=== PATIENT | male | born 1985 | race Caucasian/White ===

== ENCOUNTER 2021-08-03 15:57 | Inpatient (IN) | payer OTHER ==
[2021-08-03 17:45] VITALS: BMI 38.2
[2021-08-03] MEDS ORDERED: MAGNESIUM HYDROX 2400MG/30ML ORAL SUSPENSION 30 ML CUP PO PRN (18:45)
[2021-08-03] MEDS ORDERED: NICOTINE 10 MG CARTRIDGE (INHALER) IH PRN (18:45)
[2021-08-03] MEDS ORDERED: ONDANSETRON *ODT* 4 MG TABLET SL PRN (18:45)
[2021-08-03] MEDS ORDERED: P-EPHED 60MG/TRIPROLIDI 2.5MG TABLET PO PRN (18:45)
[2021-08-03] MEDS ORDERED: MENTHOL/PHENOL 1 EACH UD MM PRN (18:45)
[2021-08-03] MEDS ORDERED: LOPERAMIDE HCL 2 MG CAPSULE PO PRN (18:45)
[2021-08-03] MEDS ORDERED: DICYCLOMINE HCL 10 MG CAPSULE PO PRN (18:45)
[2021-08-03] MEDS ORDERED: MAGNESIUM CITRATE 300 ML BOTTLE PO PRN (18:45)
[2021-08-03] MEDS ORDERED: BISMUTH SUBSALICYLATE 524 MG/30 ML PO PRN (18:45)
[2021-08-03] MEDS ORDERED: MELATONIN 5 MG TABLETS PO PRN (18:45)
[2021-08-03] MEDS ORDERED: MAG HYDROX/AL HYDROX/SIMETH 30 ML UNIT-DOSE CUP PO PRN (18:45)
[2021-08-03] MEDS ORDERED: ACETAMINOPHEN 325 MG TABLET (FP) PO PRN ×2 (18:45)
[2021-08-03] MEDS: diazePAM 5 MG TABLET PO PRN (20:17)
[2021-08-03] MEDS: THIAMINE HCL 100 MG TABLET (FP) PO SCH (22:48)
[2021-08-03] MEDS: hydrOXYzine PAMOATE 25 MG CAPSULE (FP) PO PRN (22:48)
[2021-08-03] MEDS: METHOCARBAMOL 500 MG TABLET PO PRN (22:48)
[2021-08-03] MEDS: diazePAM 5 MG TABLET PO SCH (22:49)
[2021-08-04] MEDS: diazePAM 5 MG TABLET PO SCH ×4 (06:59→23:09)
[2021-08-04] MEDS: METHOCARBAMOL 500 MG TABLET PO PRN ×2 (10:42→17:59)
[2021-08-04] MEDS: PRENATAL VITAMINS W/ FOLIC ACID TABLET (FP) PO SCH (10:42)
[2021-08-04] MEDS: NICOTINE 7 MG/24 HOURS TOPICAL PATCH TD SCH (10:45)
[2021-08-04 10:48] LABS: HEMATOCRIT 42.7 % (35.4-49); HEMOGLOBIN 13.9 GM/dL (11.7-16.9); MCH 29.1 pg (25.7-33.7); MCHC 32.6 g/dl (32.0-35.9); MEAN CELL VOLUME 89.4 fl (80-96); MEAN PLT VOLUME 9.3 fl (7.5-11.1); PLATELET COUNT 179 10^3/uL (134-434); RBC 4.77 M/mm3 (4.00-5.60); RDW 14.5 % (11.9-15.9); WHITE BLOOD COUNT 5.3 K/mm3 (4.0-10.0)
[2021-08-04 10:57] LABS: ALBUMIN 3.4 g/dl (3.4-5.0); CALCIUM 8.7 mg/dL (8.5-10.1)
[2021-08-04 11:00] LABS: CREATININE 0.9 mg/dL (0.55-1.3)
[2021-08-04 11:02] LABS: BILIRUBIN,TOTAL 0.4 mg/dL (0.2-1); TOT PROT 6.3 g/dl (6.4-8.2)
[2021-08-04] MEDS ORDERED: FLU VACC QS2021-22(6MOS UP)/PF 60 MCG/0.5 ML SYRINGE IM ONE (12:00)
[2021-08-04] MEDS ORDERED: PNEUMOC 13-VAL CONJ-DIP CRM/PF 0.5 ML DISP.SYRIN IM ONE (12:00)
[2021-08-04] MEDS ORDERED: PNEUMOCOCCAL 23 VACCINE 0.5 ML VIAL IM ONE (12:00)
[2021-08-04 14:07] LABS: SARS-CoV-2 NAA Not Detected (Not Detected)
[2021-08-04] MEDS: IBUPROFEN 400 MG TABLET (FP) PO PRN (17:56)
[2021-08-04] MEDS ORDERED: guaiFENesin/D-METHORPHAN HB 10 ML UNIT-DOSE CUPS PO PRN (19:19)
[2021-08-04] MEDS: THIAMINE HCL 100 MG TABLET (FP) PO SCH (23:07)
[2021-08-04] MEDS: LITHIUM CARBONATE 150 MG CAPSULE PO SCH (23:10)
[2021-08-05] MEDS: IBUPROFEN 400 MG TABLET (FP) PO PRN ×2 (02:31→13:31)
[2021-08-05] MEDS: diazePAM 5 MG TABLET PO PRN ×2 (02:35→17:51)
[2021-08-05] MEDS: diazePAM 5 MG TABLET PO SCH ×3 (06:02→23:04)
[2021-08-05] MEDS: LITHIUM CARBONATE 150 MG CAPSULE PO SCH ×2 (10:22→23:05)
[2021-08-05] MEDS: NICOTINE 7 MG/24 HOURS TOPICAL PATCH TD SCH (10:22)
[2021-08-05] MEDS: PRENATAL VITAMINS W/ FOLIC ACID TABLET (FP) PO SCH (10:23)
[2021-08-05] MEDS: METHOCARBAMOL 500 MG TABLET PO PRN (13:31)
[2021-08-05] MEDS: hydrOXYzine PAMOATE 25 MG CAPSULE (FP) PO PRN (17:51)
[2021-08-05 22:44] VITALS: BP 150/105; PULSE 121; TEMP 102.2
[2021-08-05] MEDS: THIAMINE HCL 100 MG TABLET (FP) PO SCH (23:04)
[2021-08-06] MEDS ORDERED: diazePAM 5 MG TABLET PO SCH (06:00)
[2021-08-06] MEDS ORDERED: SODIUM CHLORIDE 1,000 ML IV STA (06:08)
[2021-08-07] MEDS ORDERED: diazePAM 5 MG TABLET PO ONE (06:00)
== END 2021-08-06 07:43 | disposition short-term general hospital (02) | DRG 775 ==
LOC: YASAS 15:57 → Y6N 18:55
PROVIDERS: ADMIT Allergy & Immunology; ATTEND Allergy & Immunology
PROC: HZ2ZZZZ Detoxification Services for Substance Abuse Treatment (ICD-10-PCS; principal; 2021-08-03)
DX: F10.230 Alcohol dependence with withdrawal, uncomplicated (principal); F17.210 Nicotine dependence, cigarettes, uncomplicated; F31.9 Bipolar disorder, unspecified; F10.24 Alcohol dependence with alcohol-induced mood disorder; K29.20 Alcoholic gastritis without bleeding; G47.30 Sleep apnea, unspecified; M51.86 Other intervertebral disc disorders, lumbar region; R05.9 Cough, unspecified; E66.9 Obesity, unspecified; Z68.38 Body mass index [BMI] 38.0-38.9, adult; Z91.410 Personal history of adult physical and sexual abuse; Z59.00 Homelessness unspecified; Z56.0 Unemployment, unspecified
CPT/HCPCS: 36415; 71046-TC-FY; 80053; 80178; 85027; 86780; 87811; 90686; 90732; C9803-CS; G0008; G0009; Q0162; U0003; U0005

== ENCOUNTER 2021-08-06 01:20 | Inpatient (IN) | payer OTHER ==
[2021-08-06] MEDS ORDERED: ACETAMINOPHEN 1000 MG/100 ML BAG IVPB ONE ×2 (01:49→06:30)
[2021-08-06] MEDS ORDERED: SODIUM CHLORIDE 1,000 ML IV STA ×3 (01:49→06:16)
[2021-08-06] MEDS ORDERED: ACETAMINOPHEN INJECTION 100 ML IVPB ONE ×2 (02:00→06:33)
[2021-08-06 02:27] LABS: BASO % 0.3 % (0-2.0); EOS % 0.5 % (0-4.5); HEMATOCRIT 43.9 % (35.4-49); HEMOGLOBIN 14.7 GM/dL (11.7-16.9); LYMPH % 9.9 % (8-40); MCHC 33.3 g/dl (32.0-35.9); MEAN PLT VOLUME 9.2 fl (7.5-11.1); MONO % 8.3 % (3.8-10.2); PLATELET COUNT 185 10^3/uL (134-434); RBC 5.05 M/mm3 (4.00-5.60); RDW 14.1 % (11.9-15.9); WHITE BLOOD COUNT 10.6 K/mm3 (4.0-10.0)
[2021-08-06 02:45] LABS: ALBUMIN 3.3 g/dl (3.4-5.0); BLOOD UREA NITROGEN 12.3 mg/dL (7-18); CALCIUM 8.5 mg/dL (8.5-10.1)
[2021-08-06 02:50] LABS: BILIRUBIN,TOTAL 0.7 mg/dL (0.2-1); TOT PROT 6.8 g/dl (6.4-8.2)
[2021-08-06 05:56] LABS: PH,URINE 5.5 (5.0-8.0); URINE APPEARANCE CLEAR; URINE BILIRUBIN NEGATIVE (NEGATIVE); URINE COLOR YELLOW; URINE GLUCOSE (UA) NEGATIVE (NEGATIVE); URINE KETONE NEGATIVE (NEGATIVE); URINE LEUK ESTERASE NEGATIVE (NEGATIVE); URINE NITRITE NEGATIVE (NEGATIVE); URINE PROTEIN NEGATIVE (NEGATIVE); URINE UROBILINOGEN 0.2 mg/dL (0.2-1.0)
[2021-08-06 06:30] LABS: MAGNESIUM 2.1 mg/dL (1.8-2.4)
[2021-08-06 06:34] LABS: PHOSPHOROUS 4.1 mg/dL (2.5-4.9)
[2021-08-06] MEDS: LITHIUM CARBONATE 150 MG CAPSULE PO SCH ×2 (09:17→21:55)
[2021-08-06 16:06] VITALS: BMI 36.9
[2021-08-06] MEDS ORDERED: FOLIC ACID INJECTION - 1 MG, THIAMINE HCL 100 MG, MULTIVIT INJECTION ADULT 10 ML in SOD... IVPB ONE ×2 (16:12→16:13)
[2021-08-06] MEDS: ACETAMINOPHEN 325 MG TABLET (FP) PO PRN (16:56)
[2021-08-06 18:18] LABS: COCAINE, UR NEGATIVE (NEGATIVE); OPIATES, URI NEGATIVE (NEGATIVE)
[2021-08-06 18:19] LABS: METHADONE, UR NEGATIVE (NEGATIVE); PHENCYCLIDINE,URINE NEGATIVE (NEGATIVE); URINE BARBITURATES NEGATIVE (NEGATIVE); URINE BENZODIAZEPINES NEGATIVE (NEGATIVE)
[2021-08-06 18:21] LABS: URINE AMPHETAMINES NEGATIVE (NEGATIVE)
[2021-08-06] MEDS: traZODone HCL 50 MG TABLET (FP) PO SCH (21:24)
[2021-08-07 09:23] LABS: BASO % 0.4 % (0-2.0); EOS % 2.5 % (0-4.5); HEMATOCRIT 41.3 % (35.4-49); HEMOGLOBIN 14.2 GM/dL (11.7-16.9); MCH 30.3 pg (25.7-33.7); MCHC 34.3 g/dl (32.0-35.9); MEAN CELL VOLUME 88.2 fl (80-96); MEAN PLT VOLUME 8.9 fl (7.5-11.1); MONO % 5.9 % (3.8-10.2); NEUT % 77.2 % (42.8-82.8); PLATELET COUNT 157 10^3/uL (134-434); RBC 4.68 M/mm3 (4.00-5.60); RDW 14.1 % (11.9-15.9); WHITE BLOOD COUNT 9.7 K/mm3 (4.0-10.0)
[2021-08-07] MEDS: ACETAMINOPHEN 325 MG TABLET (FP) PO PRN (09:25)
[2021-08-07] MEDS: LITHIUM CARBONATE 150 MG CAPSULE PO SCH ×2 (09:25→22:22)
[2021-08-07 09:29] LABS: CALCIUM 8.9 mg/dL (8.5-10.1)
[2021-08-07 09:30] LABS: BLOOD UREA NITROGEN 11.1 mg/dL (7-18); MAGNESIUM 2.3 mg/dL (1.8-2.4)
[2021-08-07 09:32] LABS: ALBUMIN 3.3 g/dl (3.4-5.0); BLOOD UREA NITROGEN 11.2 mg/dL (7-18)
[2021-08-07 09:33] LABS: CREATININE 0.7 mg/dL (0.55-1.3); PHOSPHOROUS 2.8 mg/dL (2.5-4.9)
[2021-08-07] MEDS ORDERED: SENNOSIDES 8.6MG TABLET (FP) PO PRN (09:33)
[2021-08-07 09:35] LABS: CREATININE 0.7 mg/dL (0.55-1.3)
[2021-08-07 09:36] LABS: BILIRUBIN,TOTAL 0.5 mg/dL (0.2-1); TOT PROT 6.6 g/dl (6.4-8.2)
[2021-08-07] MEDS: traZODone HCL 50 MG TABLET (FP) PO SCH (22:22)
[2021-08-07] MEDS: NICOTINE 14 MG/24 HOURS TOPICAL PATCH TD SCH (22:22)
[2021-08-08] MEDS ORDERED: ONDANSETRON 4 MG/2 ML VIAL IVPUSH ONE (06:38)
[2021-08-08] MEDS ORDERED: ONDANSETRON 4 MG/2 ML VIAL IVPUSH PRN (09:35)
[2021-08-08] MEDS: LITHIUM CARBONATE 150 MG CAPSULE PO SCH ×2 (10:03→22:37)
[2021-08-08] MEDS: NICOTINE 14 MG/24 HOURS TOPICAL PATCH TD SCH ×2 (10:03→10:10)
[2021-08-08] MEDS: ACETAMINOPHEN 325 MG TABLET (FP) PO PRN (10:04)
[2021-08-08] MEDS: traZODone HCL 50 MG TABLET (FP) PO SCH (22:37)
[2021-08-09] MEDS: NICOTINE 14 MG/24 HOURS TOPICAL PATCH TD SCH (11:17)
[2021-08-09] MEDS: LITHIUM CARBONATE 150 MG CAPSULE PO SCH (11:18)
[2021-08-09 15:05] VITALS: BP 141/79; PULSE 96; TEMP 97.6
== END 2021-08-09 15:36 | disposition home or self-care (01) | DRG 722 ==
LOC: JER 01:20 → JERBED 05:27 → J7W 09:48
PROVIDERS: ADMIT Hospitalist; ATTEND Internal Medicine
DX: R50.9 Fever, unspecified (principal); R65.10 Systemic inflammatory response syndrome (SIRS) of non-infectious origin without acute organ dysfunction; D72.829 Elevated white blood cell count, unspecified; F19.10 Other psychoactive substance abuse, uncomplicated; F31.9 Bipolar disorder, unspecified; G47.33 Obstructive sleep apnea (adult) (pediatric); F17.210 Nicotine dependence, cigarettes, uncomplicated; R00.0 Tachycardia, unspecified; F10.230 Alcohol dependence with withdrawal, uncomplicated
CPT/HCPCS: 36415; 71045-TC-FY; 80048; 80053; 80061; 80178; 80307; 81003; 82272; 83036; 83605; 83690; 83735; 84100; 84484; 85025; 87040; 87086; 87804; 87807; 93005; 93010; 97161-GP; 99285-25; C9803-CS; U0003; U0005